=== PATIENT | female | born 1955 | race Two or more races ===

== ENCOUNTER 2019-09-07 16:05 | Inpatient (IN) | payer MEDICAID ==
[~2019-09-07] VITALS: Ht 144.8 cm; Wt 76.2 kg
[~2019-09-07 16:05] MED LIST: GLIM2TAB30 PO; METFORMIN PO; Nifedipine PO; OMEP20CA14 PO; TRAM50TA94 PO
[2019-09-07 20:26] LABS: CHLORIDE 107 mEq/L (98-107)
[2019-09-07 20:32] LABS: BASOPHILS % 0.3 % (0.0-2.0); EOSINOPHILS % 0.6 % (0.0-5.0); LYMPHOCYTES % 17.3 % (20.0-50.0); MEAN CORPUSCULAR VOLUME 92.6 fL (81.0-99.0); MEAN PLATELET VOLUME 9.2 fl (7.4-10.4); MONOCYTES % 6.4 % (2.0-8.0); NEUTROPHILS % 75.4 % (40.0-76.0); PLATELET 237 x1000/uL (130-400); RED BLOOD CELL COUNT 1.97 mill/uL (4.2-5.4); RED CELL DISTRIBUTION WIDTH 14.5 % (11.6-14.6)
[2019-09-07 20:35] LABS: HEMATOCRIT. 18.3 % (36.0-48.0); HEMOGLOBIN. 6.1 g/dL (12.0-16.0)
[2019-09-07 20:37] LABS: INR 0.9; PROTHROMBIN TIME 10.1 sec (9.6-11.0)
[2019-09-07] MEDS ORDERED: PANTOPRAZOLE SODIUM 40 MG/VIAL IV ONE (20:45)
[2019-09-07 21:08] LABS: TOTAL IRON BINDING CAPACITY 239 ug/dL (250-450)
[2019-09-07] MEDS ORDERED: ONDANSETRON HCL 4MG/2ML INJ IV PRN (23:30)
[2019-09-07] MEDS ORDERED: IPRATROPIUM/ALBUTEROL 0.5-3(2.5)MG/3ML NEB NEB PRN (23:30)
[2019-09-08] MEDS ORDERED: PANTOPRAZOLE 80 MG in SODIUM CHLORIDE 0.9% 100 ML IV SCH (01:00)
[2019-09-08] MEDS: PANTOPRAZOLE 80 MG in SODIUM CHLORIDE 0.9% 100 ML IV SCH ×2 (01:30→13:41)
[2019-09-08] MEDS: SODIUM CHLORIDE 0.9% 1,000 ML IV SCH ×2 (03:37→16:14)
[2019-09-08 04:43] LABS: CLARITY URINE TURBID (CLEAR); COLOR URINE ORANGE (YELLOW); KETONES URINE NEGATIVE (NEGATIVE); LEUKOCYTE ESTERASE URINE 2+ (NEGATIVE); NITRITE URINE POSITIVE (NEGATIVE); OCCULT BLOOD URINE 2+ (NEGATIVE); PH URINE 5.5 (4.5-8.0); PROTEIN URINE 2+ (NEGATIVE); SPECIFIC GRAVITY URINE 1.018 (1.005-1.030); UROBILINOGEN URINE 0.2 E.U./dL (0.2-1.0)
[2019-09-08 05:13] LABS: *AMPHETAMINES SCREEN URINE NEGATIVE (NEGATIVE); *BARBITURATES SCREEN URINE NEGATIVE (NEGATIVE); *BENZODIAZEPINES SCREEN URINE NEGATIVE (NEGATIVE); *COCAINE SCREEN URINE NEGATIVE (NEGATIVE)
[2019-09-08 05:14] LABS: CANNABINOID URINE SCREEN NEGATIVE (NEGATIVE); METHADONE URINE SCREEN NEGATIVE (NEGATIVE); OPIATES URINE SCREEN NEGATIVE (NEGATIVE); PHENCYCLIDINE URINE SCREEN NEGATIVE (NEGATIVE)
[2019-09-08 05:26] LABS: BASOPHILS % 0.7 % (0.0-2.0); EOSINOPHILS % 1.9 % (0.0-5.0); HEMOGLOBIN. 7.1 g/dL (12.0-16.0); LYMPHOCYTES % 21.5 % (20.0-50.0); MEAN CORPUSCULAR HEMOGLOBIN 31.2 pg (28.0-32.0); MEAN PLATELET VOLUME 8.8 fl (7.4-10.4); MONOCYTES % 7.5 % (2.0-8.0); NEUTROPHILS % 68.4 % (40.0-76.0); PLATELET 191 x1000/uL (130-400); RED BLOOD CELL COUNT 2.27 mill/uL (4.2-5.4); RED CELL DISTRIBUTION WIDTH 14.6 % (11.6-14.6)
[2019-09-08 05:34] LABS: HEMATOCRIT. 20.7 % (36.0-48.0)
[2019-09-08 05:48] LABS: CREATINE KINASE 33 IU/L (26-192)
[2019-09-08 05:49] LABS: CREATINE KINASE MB FRACTION < 1.0 ng/mL (0.5-3.6)
[2019-09-08] MEDS ORDERED: DEXTROSE 50% WATER 50ML SYRINGE IV PRN (06:15)
[2019-09-08] MEDS: INSULIN LISPRO (HIGH DOSE) 100 UNITS/ML SUBCUT SCH ×2 (06:20→15:11)
[2019-09-08] MEDS: BLOOD SUGAR DIAGNOSTIC STRIP TEST SCH ×2 (10:03→15:11)
[2019-09-08 13:01] LABS: AMYLASE 32 IU/L (25-115)
[2019-09-08 16:48] LABS: BASOPHILS % 0.6 % (0.0-2.0); EOSINOPHILS % 2.3 % (0.0-5.0); LYMPHOCYTES % 18.2 % (20.0-50.0); MEAN CORPUSCULAR HEMOGLOBIN 30.6 pg (28.0-32.0); MEAN PLATELET VOLUME 8.8 fl (7.4-10.4); MONOCYTES % 7.4 % (2.0-8.0); NEUTROPHILS % 71.5 % (40.0-76.0); PLATELET 189 x1000/uL (130-400); RED BLOOD CELL COUNT 2.16 mill/uL (4.2-5.4); RED CELL DISTRIBUTION WIDTH 15.2 % (11.6-14.6)
[2019-09-08 16:51] LABS: HEMATOCRIT. 19.9 % (36.0-48.0); HEMOGLOBIN. 6.6 g/dL (12.0-16.0)
[2019-09-08 17:02] LABS: CREATINE KINASE 36 IU/L (26-192); CREATINE KINASE MB FRACTION < 1.0 ng/mL (0.5-3.6)
[2019-09-08 20:39] LABS: BASOPHILS % 0.6 % (0.0-2.0); EOSINOPHILS % 2.5 % (0.0-5.0); HEMATOCRIT. 25.4 % (36.0-48.0); HEMOGLOBIN. 8.6 g/dL (12.0-16.0); LYMPHOCYTES % 19.3 % (20.0-50.0); MEAN CORPUSCULAR HEMOGLOBIN 30.3 pg (28.0-32.0); MEAN PLATELET VOLUME 8.8 fl (7.4-10.4); MONOCYTES % 6.6 % (2.0-8.0); PLATELET 197 x1000/uL (130-400); RED BLOOD CELL COUNT 2.85 mill/uL (4.2-5.4)
[2019-09-08] MEDS ORDERED: NIFEDIPINE XL 60MG TAB PO NR (20:45)
[2019-09-08 21:38] LABS: VITAMIN B12 SERUM 546 pg/mL (211-911)
[2019-09-08 22:00] VITALS: BP 149/77
[2019-09-08] MEDS: SUCRALFATE 1 G/10 ML UDC PO SCH (23:17)
[2019-09-09] VITALS (17 sets, daily range): BP systolic 88–139; BP diastolic 37–81
[2019-09-09 01:20] LABS: BASOPHILS % 0.6 % (0.0-2.0); EOSINOPHILS % 2.6 % (0.0-5.0); HEMATOCRIT. 22.3 % (36.0-48.0); HEMOGLOBIN. 7.7 g/dL (12.0-16.0); LYMPHOCYTES % 20.4 % (20.0-50.0); MEAN CORPUSCULAR HEMOGLOBIN 30.5 pg (28.0-32.0); MEAN CORPUSCULAR VOLUME 88.5 fL (81.0-99.0); MEAN PLATELET VOLUME 8.9 fl (7.4-10.4); NEUTROPHILS % 69.4 % (40.0-76.0); PLATELET 180 x1000/uL (130-400); RED BLOOD CELL COUNT 2.52 mill/uL (4.2-5.4); RED CELL DISTRIBUTION WIDTH 15.8 % (11.6-14.6)
[2019-09-09] MEDS: SODIUM CHLORIDE 0.9% 1,000 ML IV SCH ×2 (04:21→17:06)
[2019-09-09] MEDS: BLOOD SUGAR DIAGNOSTIC STRIP TEST SCH ×4 (08:08→20:56)
[2019-09-09] MEDS: SUCRALFATE 1 G/10 ML UDC PO SCH ×4 (09:03→20:47)
[2019-09-09] MEDS: MULTIVITAMINS,THER W-MINERALS TABLET PO SCH (09:03)
[2019-09-09] MEDS: METFORMIN HCL 500MG TABLET PO SCH ×2 (09:03→17:46)
[2019-09-09] MEDS: INSULIN LISPRO (HIGH DOSE) 100 UNITS/ML SUBCUT SCH ×4 (09:04→20:56)
[2019-09-09] MEDS: PANTOPRAZOLE SODIUM 40 MG/VIAL IV SCH ×2 (09:04→17:46)
[2019-09-09] MEDS: NIFEDIPINE XL 60MG TAB PO SCH (09:04)
[2019-09-09] MEDS: GLIMEPIRIDE 2MG TABLET PO SCH (09:04)
[2019-09-09] MEDS ORDERED: INFLUENZA VIRUS VACCINE(AFLURIA) 0.5ML SYR IM ONE (12:00)
[2019-09-09] MEDS ORDERED: PNEUMOCOCCAL 23-VAL P-SAC VAC 0.5 ML IM ONE (12:00)
[2019-09-09] MEDS ORDERED: IOHEXOL-300 100 ML BOTTLE ONE (21:09)
[2019-09-10] VITALS (12 sets, daily range): BP systolic 126–155; BP diastolic 59–85
[2019-09-10] MEDS: BLOOD SUGAR DIAGNOSTIC STRIP TEST SCH ×4 (07:27→21:00)
[2019-09-10] MEDS: SUCRALFATE 1 G/10 ML UDC PO SCH ×4 (07:30→22:18)
[2019-09-10] MEDS: INSULIN LISPRO (HIGH DOSE) 100 UNITS/ML SUBCUT SCH ×4 (08:00→21:00)
[2019-09-10] MEDS: METFORMIN HCL 500MG TABLET PO SCH ×2 (08:56→17:01)
[2019-09-10] MEDS: GLIMEPIRIDE 2MG TABLET PO SCH (08:56)
[2019-09-10] MEDS: PANTOPRAZOLE SODIUM 40 MG/VIAL IV SCH (08:56)
[2019-09-10] MEDS: NIFEDIPINE XL 60MG TAB PO SCH (08:56)
[2019-09-10] MEDS: MULTIVITAMINS,THER W-MINERALS TABLET PO SCH (09:00)
[2019-09-10] MEDS: SODIUM CHLORIDE 0.9% 1,000 ML IV SCH (11:34)
[2019-09-10] MEDS: CEFTRIAXONE 1 G PREMIX 50 ML IV SCH (15:28)
[2019-09-10 16:20] LABS: HEMATOCRIT 27.5 % (36.0-48.0); HEMOGLOBIN 9.4 g/dL (12.0-16.0); MEAN CORPUSCULAR HEMOGLOBIN 30.9 pg (28.0-32.0); MEAN CORPUSCULAR VOLUME 90.3 fL (81.0-99.0); PLATELET 183 x1000/uL (130-400); RED BLOOD CELL COUNT 3.05 mill/uL (4.2-5.4); RED CELL DISTRIBUTION WIDTH 16.4 % (11.6-14.6)
[2019-09-10 16:56] LABS: CHLORIDE 111 mEq/L (98-107)
[2019-09-11] VITALS (12 sets, daily range): BP systolic 113–150; BP diastolic 59–77
[2019-09-11] MEDS: SODIUM CHLORIDE 0.9% 1,000 ML IV SCH ×2 (05:24→19:06)
[2019-09-11 06:30] LABS: BASOPHILS % 0.8 % (0.0-2.0); EOSINOPHILS % 2.3 % (0.0-5.0); HEMATOCRIT. 28.6 % (36.0-48.0); HEMOGLOBIN. 9.7 g/dL (12.0-16.0); LYMPHOCYTES % 21.2 % (20.0-50.0); MEAN CORPUSCULAR HEMOGLOBIN 30.8 pg (28.0-32.0); MEAN CORPUSCULAR VOLUME 90.7 fL (81.0-99.0); MEAN PLATELET VOLUME 8.6 fl (7.4-10.4); MONOCYTES % 9.2 % (2.0-8.0); NEUTROPHILS % 66.5 % (40.0-76.0); PLATELET 198 x1000/uL (130-400); RED BLOOD CELL COUNT 3.15 mill/uL (4.2-5.4); RED CELL DISTRIBUTION WIDTH 16.6 % (11.6-14.6)
[2019-09-11 06:48] LABS: CHLORIDE 112 mEq/L (98-107)
[2019-09-11] MEDS: BLOOD SUGAR DIAGNOSTIC STRIP TEST SCH ×4 (07:59→21:48)
[2019-09-11] MEDS: INSULIN LISPRO (HIGH DOSE) 100 UNITS/ML SUBCUT SCH ×4 (08:00→21:00)
[2019-09-11] MEDS: PANTOPRAZOLE SODIUM 40 MG/VIAL IV SCH ×2 (08:37→17:54)
[2019-09-11] MEDS: SUCRALFATE 1 G/10 ML UDC PO SCH ×4 (08:37→21:48)
[2019-09-11] MEDS: METFORMIN HCL 500MG TABLET PO SCH ×2 (08:40→17:54)
[2019-09-11] MEDS: MULTIVITAMINS,THER W-MINERALS TABLET PO SCH (08:42)
[2019-09-11] MEDS: NIFEDIPINE XL 60MG TAB PO SCH (08:42)
[2019-09-11] MEDS: GLIMEPIRIDE 2MG TABLET PO SCH (08:43)
[2019-09-11 10:25] LABS: CLARITY URINE CLOUDY (CLEAR); COLOR URINE YELLOW (YELLOW); KETONES URINE NEGATIVE (NEGATIVE); LEUKOCYTE ESTERASE URINE NEGATIVE (NEGATIVE); NITRITE URINE NEGATIVE (NEGATIVE); OCCULT BLOOD URINE 3+ (NEGATIVE); PROTEIN URINE 3+ (NEGATIVE); SPECIFIC GRAVITY URINE 1.012 (1.005-1.030); UROBILINOGEN URINE 0.2 E.U./dL (0.2-1.0)
[2019-09-11] MEDS: CEFTRIAXONE 1 G PREMIX 50 ML IV SCH (13:31)
[2019-09-11] MEDS ORDERED: METOCLOPRAMIDE HCL 10MG/2ML VIAL IV NR (13:41)
[2019-09-11] MEDS ORDERED: BACTERIOSTATIC SODIUM CHLORIDE 0.9% 30ML VIAL IJ ONE (14:07)
[2019-09-11] MEDS ORDERED: MIDAZOLAM HCL 5 MG/5 ML VIAL ONE (14:57)
[2019-09-11] MEDS ORDERED: FENTANYL CITRATE/PF 50MCG/ML 2ML VIAL ONE (14:57)
[2019-09-11] MEDS ORDERED: MIDAZOLAM HCL 5 MG/5 ML VIAL IV PRN (15:27)
[2019-09-11] MEDS ORDERED: FENTANYL CITRATE/PF 50MCG/ML 2ML VIAL IV PRN (15:28)
[2019-09-12] VITALS (9 sets, daily range): BP systolic 126–152; BP diastolic 63–83
[2019-09-12] MEDS: PANTOPRAZOLE SODIUM 40 MG/VIAL IV SCH ×2 (05:31→16:49)
[2019-09-12 07:19] LABS: BASOPHILS % 0.6 % (0.0-2.0); EOSINOPHILS % 2.7 % (0.0-5.0); HEMATOCRIT. 29.8 % (36.0-48.0); HEMOGLOBIN. 9.9 g/dL (12.0-16.0); LYMPHOCYTES % 13.4 % (20.0-50.0); MEAN CORPUSCULAR HEMOGLOBIN 30.3 pg (28.0-32.0); MEAN CORPUSCULAR VOLUME 91.1 fL (81.0-99.0); MEAN PLATELET VOLUME 8.9 fl (7.4-10.4); MONOCYTES % 8.3 % (2.0-8.0); PLATELET 223 x1000/uL (130-400); RED BLOOD CELL COUNT 3.27 mill/uL (4.2-5.4); RED CELL DISTRIBUTION WIDTH 17.2 % (11.6-14.6)
[2019-09-12] MEDS: BLOOD SUGAR DIAGNOSTIC STRIP TEST SCH ×3 (07:58→16:51)
[2019-09-12] MEDS: INSULIN LISPRO (HIGH DOSE) 100 UNITS/ML SUBCUT SCH ×3 (08:00→16:59)
[2019-09-12] MEDS: METFORMIN HCL 500MG TABLET PO SCH ×2 (08:00→16:51)
[2019-09-12 08:18] LABS: CHLORIDE 110 mEq/L (98-107)
[2019-09-12] MEDS: SUCRALFATE 1 G/10 ML UDC PO SCH ×3 (08:18→16:49)
[2019-09-12] MEDS: MULTIVITAMINS,THER W-MINERALS TABLET PO SCH (08:19)
[2019-09-12] MEDS: NIFEDIPINE XL 60MG TAB PO SCH (08:19)
[2019-09-12] MEDS: GLIMEPIRIDE 2MG TABLET PO SCH (08:20)
[2019-09-12] MEDS: CEFTRIAXONE 1 G PREMIX 50 ML IV SCH (12:14)
[2019-09-13] MEDS ORDERED: CEFTRIAXONE 1,000 MG in DEXTROSE 5% WATER 50 ML IV SCH (14:00)
== END 2019-09-12 17:10 | disposition home or self-care (01) | DRG 241 ==
LOC: ER 16:05 → EDBEDREQTM 21:35 → EDBEDREQ 21:35 → CANRESERV 23:18 → ENRESERV 23:18 → EDBEDREQSVC 23:49 → ENRESERV 09-08 20:19 → 5EST 09-08 21:31
PROVIDERS: ADMIT Internal Medicine; ATTEND Internal Medicine
PROC: 30233N1 Transfusion of Nonautologous Red Blood Cells into Peripheral Vein, Percutaneous Approach (ICD-10-PCS; 2019-09-08)
PROC: 0DB98ZX Excision of Duodenum, Via Natural or Artificial Opening Endoscopic, Diagnostic (ICD-10-PCS; principal; 2019-09-11)
PROC: 0DB78ZX Excision of Stomach, Pylorus, Via Natural or Artificial Opening Endoscopic, Diagnostic (ICD-10-PCS; 2019-09-11)
DX: K25.4 Chronic or unspecified gastric ulcer with hemorrhage (principal); E46 Unspecified protein-calorie malnutrition; E11.65 Type 2 diabetes mellitus with hyperglycemia; D63.8 Anemia in other chronic diseases classified elsewhere; D49.0 Neoplasm of unspecified behavior of digestive system; E16.4 Increased secretion of gastrin; D50.9 Iron deficiency anemia, unspecified; E78.1 Pure hyperglyceridemia; K26.0 Acute duodenal ulcer with hemorrhage; I10 Essential (primary) hypertension; N39.0 Urinary tract infection, site not specified; Z87.11 Personal history of peptic ulcer disease; Z68.36 Body mass index [BMI] 36.0-36.9, adult; Z79.899 Other long term (current) drug therapy
CPT/HCPCS: 36415; 74177; 80048; 80053; 80061; 80305; 81003; 82150; 82378; 82550; 82553; 82607; 82941; 82962; 83036; 83540; 83550; 84443; 84484; 85025; 85027; 85044; 86300; 86301; 86850; 86870; 86900; 86920; 88305; 88312; 88313; 90686; 90732; 93005; 93970; 96361; 96365; 96366; 96372; 99291; C9113; J0696; J1815; J2250; J2765; J3010; J3490; J7050; J7060; P9016; P9021; Q9967

== ENCOUNTER 2020-07-11 17:33 | Inpatient (IN) | payer MEDICAID ==
[~2020-07-11] VITALS: Ht 152.4 cm; Wt 88.9 kg
[~2020-07-11 17:33] MED LIST changes: +FERR325T23 PO; +SITA25TA3 PO; +SUCR1TAB30 MT
[2020-07-11 20:05] LABS: PARTIAL THROMBOPLASTIN TIME 27.1 sec (23.4-31.0); PROTHROMBIN TIME 10.2 sec (9.6-11.0)
[2020-07-11 20:37] LABS: BASOPHILS % 0.6 % (0.0-2.0); EOSINOPHILS % 0.1 % (0.0-5.0); LYMPHOCYTES % 20.1 % (20.0-50.0); MEAN CORPUSCULAR HEMOGLOBIN 28.8 pg (28.0-32.0); MEAN PLATELET VOLUME 9.5 fl (7.4-10.4); MONOCYTES % 6.1 % (2.0-8.0); NEUTROPHILS % 73.1 % (40.0-76.0); PLATELET 202 x1000/uL (130-400); RED BLOOD CELL COUNT 2.05 mill/uL (4.2-5.4); RED CELL DISTRIBUTION WIDTH 18.6 % (11.6-14.6)
[2020-07-11 20:40] LABS: HEMATOCRIT. 18.4 % (36.0-48.0); HEMOGLOBIN. 5.9 g/dL (12.0-16.0)
[2020-07-12] MEDS ORDERED: CEFTRIAXONE 1 G PREMIX 50 ML IV ONE (00:30)
[2020-07-12] MEDS ORDERED: PANTOPRAZOLE SODIUM 40 MG/VIAL IV ONE (00:30)
[2020-07-12] MEDS ORDERED: CEFTRIAXONE 1 G PREMIX 50 ML IV SCH ×2 (01:30→10:30)
[2020-07-12 01:48] LABS: CHLORIDE 109 mEq/L (98-107)
[2020-07-12 01:54] LABS: D-DIMER 0.81 mg/L FEU (<0.50)
[2020-07-12] MEDS ORDERED: ONDANSETRON HCL 4MG/2ML INJ IV PRN (10:30)
[2020-07-12] MEDS ORDERED: DIPHENHYDRAMINE 50MG/ML VIAL IV PRN (10:30)
[2020-07-12 13:13] LABS: C REACTIVE PROTEIN CARDIAC 6.5 mg/L (0.00-3.00)
[2020-07-12] MEDS: CLONIDINE 0.1MG TABLET PO PRN (15:00)
[2020-07-12] MEDS: SODIUM CHLORIDE 0.9% 1,000 ML IV SCH ×2 (15:08→23:45)
[2020-07-12 17:20] LABS: TOTAL IRON BINDING CAPACITY 212 ug/dL (250-450)
[2020-07-12] MEDS: FERROUS SULFATE 325MG TABLET PO SCH (18:36)
[2020-07-12] MEDS: PANTOPRAZOLE SODIUM 40 MG/VIAL IV SCH ×2 (18:36→23:09)
[2020-07-12 21:28] VITALS: BP 179/72
[2020-07-12 21:51] VITALS: BP 177/65
[2020-07-12] MEDS ORDERED: DEXTROSE 50% WATER 50ML SYRINGE IV PRN (23:00)
[2020-07-12] MEDS: INSULIN GLARGINE UD 100 UNITS/ML SYR SUBCUT SCH (23:39)
[2020-07-13] MEDS: CLONIDINE 0.1MG TABLET PO PRN ×2 (00:26→06:37)
[2020-07-13 00:28] LABS: HEMATOCRIT 25.8 % (36.0-48.0); HEMOGLOBIN 8.6 g/dL (12.0-16.0)
[2020-07-13] MEDS: CEFTRIAXONE 1,000 MG in DEXTROSE 5% WATER 50 ML IV SCH (03:00)
[2020-07-13 04:49] LABS: BASOPHILS % 0.3 % (0.0-2.0); EOSINOPHILS % 0.1 % (0.0-5.0); HEMATOCRIT. 26.4 % (36.0-48.0); HEMOGLOBIN. 8.6 g/dL (12.0-16.0); LYMPHOCYTES % 12.6 % (20.0-50.0); MEAN CORPUSCULAR HEMOGLOBIN 29.8 pg (28.0-32.0); MEAN CORPUSCULAR VOLUME 91.8 fL (81.0-99.0); MEAN PLATELET VOLUME 9.8 fl (7.4-10.4); MONOCYTES % 5.2 % (2.0-8.0); NEUTROPHILS % 81.8 % (40.0-76.0); PLATELET 168 x1000/uL (130-400); RED BLOOD CELL COUNT 2.88 mill/uL (4.2-5.4); RED CELL DISTRIBUTION WIDTH 16.9 % (11.6-14.6)
[2020-07-13 04:52] LABS: CHLORIDE 113 mEq/L (98-107)
[2020-07-13 04:58] LABS: INR 0.9; LDL CHOLESTEROL 56 mg/dL (5-100); PARTIAL THROMBOPLASTIN TIME 26.5 sec (23.4-31.0); PROTHROMBIN TIME 9.9 sec (9.6-11.0)
[2020-07-13 05:00] LABS: HDL CHOLESTEROL 30 mg/dL (40-59)
[2020-07-13] MEDS: BLOOD SUGAR DIAGNOSTIC STRIP TEST SCH ×4 (05:44→22:40)
[2020-07-13] MEDS: INSULIN LISPRO 100 UNITS/ML SUBCUT SCH ×3 (06:23→16:55)
[2020-07-13] MEDS: FERROUS SULFATE 325MG TABLET PO SCH (06:37)
[2020-07-13] MEDS: INSULIN GLARGINE UD 100 UNITS/ML SYR SUBCUT SCH (10:17)
[2020-07-13] MEDS: SODIUM CHLORIDE 0.9% 1,000 ML IV SCH (11:34)
[2020-07-13] MEDS: PANTOPRAZOLE SODIUM 40 MG/VIAL IV SCH (17:12)
[2020-07-14] MEDS: SODIUM CHLORIDE 0.9% 1,000 ML IV SCH (00:04)
[2020-07-14] MEDS: INSULIN GLARGINE UD 100 UNITS/ML SYR SUBCUT SCH ×3 (00:04→22:52)
[2020-07-14] MEDS: INSULIN LISPRO 100 UNITS/ML SUBCUT SCH ×6 (00:04→22:08)
[2020-07-14] MEDS: CLONIDINE 0.1MG TABLET PO PRN ×2 (00:11→08:31)
[2020-07-14 04:43] LABS: BASOPHILS % 0.3 % (0.0-2.0); EOSINOPHILS % 0.1 % (0.0-5.0); HEMATOCRIT. 26.3 % (36.0-48.0); HEMOGLOBIN. 8.5 g/dL (12.0-16.0); LYMPHOCYTES % 19.6 % (20.0-50.0); MEAN CORPUSCULAR HEMOGLOBIN 29.4 pg (28.0-32.0); MEAN CORPUSCULAR VOLUME 91.1 fL (81.0-99.0); MONOCYTES % 7.1 % (2.0-8.0); NEUTROPHILS % 72.9 % (40.0-76.0); PLATELET 163 x1000/uL (130-400); RED BLOOD CELL COUNT 2.89 mill/uL (4.2-5.4)
[2020-07-14 04:51] LABS: CHLORIDE 113 mEq/L (98-107)
[2020-07-14] MEDS: CEFTRIAXONE 1,000 MG in DEXTROSE 5% WATER 50 ML IV SCH (04:59)
[2020-07-14] MEDS: BLOOD SUGAR DIAGNOSTIC STRIP TEST SCH ×4 (07:40→21:00)
[2020-07-14] MEDS: PANTOPRAZOLE SODIUM 40 MG/VIAL IV SCH ×2 (09:00→16:59)
[2020-07-14] MEDS ORDERED: HYDRALAZINE 20MG/ML VIAL IV PRN (09:30)
[2020-07-14 15:40] VITALS: BP 86/75
[2020-07-14] MEDS: NIFEDIPINE XL 60MG TAB PO SCH (16:59)
[2020-07-14 20:00] VITALS: BP 113/93
[2020-07-14] MEDS: DOCUSATE SODIUM 250MG CAPSULE PO SCH (22:08)
[2020-07-15] VITALS: BP 133/44
[2020-07-15] MEDS: SODIUM CHLORIDE 0.9% 1,000 ML IV SCH (00:54)
[2020-07-15] MEDS: CEFTRIAXONE 1,000 MG in DEXTROSE 5% WATER 50 ML IV SCH (03:05)
[2020-07-15 04:00] VITALS: BP 126/60
[2020-07-15] MEDS: ACETAMINOPHEN 325MG TABLET PO PRN (05:27)
[2020-07-15] MEDS: BLOOD SUGAR DIAGNOSTIC STRIP TEST SCH ×4 (06:15→21:00)
[2020-07-15] MEDS: INSULIN LISPRO 100 UNITS/ML SUBCUT SCH ×4 (06:16→21:56)
[2020-07-15 07:23] LABS: BASOPHILS % 0.3 % (0.0-2.0); HEMOGLOBIN. 8.7 g/dL (12.0-16.0); LYMPHOCYTES % 14.4 % (20.0-50.0); MEAN CORPUSCULAR HEMOGLOBIN 29.3 pg (28.0-32.0); MEAN CORPUSCULAR VOLUME 91.2 fL (81.0-99.0); MEAN PLATELET VOLUME 9.9 fl (7.4-10.4); MONOCYTES % 4.7 % (2.0-8.0); NEUTROPHILS % 80.6 % (40.0-76.0); PLATELET 180 x1000/uL (130-400); RED BLOOD CELL COUNT 2.96 mill/uL (4.2-5.4); RED CELL DISTRIBUTION WIDTH 17.2 % (11.6-14.6)
[2020-07-15 08:00] VITALS: BP 169/110
[2020-07-15] MEDS: PANTOPRAZOLE SODIUM 40 MG/VIAL IV SCH ×2 (09:50→17:00)
[2020-07-15] MEDS: DOCUSATE SODIUM 250MG CAPSULE PO SCH ×2 (09:50→17:00)
[2020-07-15] MEDS: NIFEDIPINE XL 60MG TAB PO SCH (09:50)
[2020-07-15] MEDS: INSULIN GLARGINE UD 100 UNITS/ML SYR SUBCUT SCH (11:03)
[2020-07-15 12:00] VITALS: BP 115/45
[2020-07-15 16:00] VITALS: BP 102/40
[2020-07-15] MEDS: SUCRALFATE 1G TABLET PO SCH ×2 (17:10→21:56)
[2020-07-15 20:00] VITALS: BP 123/55
[2020-07-16] VITALS: BP 118/77
[2020-07-16] MEDS: INSULIN GLARGINE UD 100 UNITS/ML SYR SUBCUT SCH ×3 (00:02→23:50)
[2020-07-16] MEDS: CEFTRIAXONE 1,000 MG in DEXTROSE 5% WATER 50 ML IV SCH (02:54)
[2020-07-16] MEDS: SODIUM CHLORIDE 0.9% 1,000 ML IV SCH ×4 (02:55→22:38)
[2020-07-16 04:00] VITALS: BP 129/80
[2020-07-16] MEDS: SUCRALFATE 1G TABLET PO SCH ×4 (06:06→22:32)
[2020-07-16] MEDS: INSULIN LISPRO 100 UNITS/ML SUBCUT SCH ×4 (06:06→22:35)
[2020-07-16] MEDS: BLOOD SUGAR DIAGNOSTIC STRIP TEST SCH ×4 (06:06→21:00)
[2020-07-16 08:00] VITALS: BP 133/63
[2020-07-16 08:48] LABS: BASOPHILS % 0.2 % (0.0-2.0); EOSINOPHILS % 0.1 % (0.0-5.0); HEMATOCRIT. 24.7 % (36.0-48.0); HEMOGLOBIN. 8.1 g/dL (12.0-16.0); LYMPHOCYTES % 13.2 % (20.0-50.0); MEAN CORPUSCULAR HEMOGLOBIN 29.9 pg (28.0-32.0); MEAN CORPUSCULAR VOLUME 90.9 fL (81.0-99.0); MEAN PLATELET VOLUME 9.5 fl (7.4-10.4); MONOCYTES % 5.8 % (2.0-8.0); NEUTROPHILS % 80.7 % (40.0-76.0); PLATELET 192 x1000/uL (130-400); RED BLOOD CELL COUNT 2.72 mill/uL (4.2-5.4); RED CELL DISTRIBUTION WIDTH 17.2 % (11.6-14.6)
[2020-07-16] MEDS: DOCUSATE SODIUM 250MG CAPSULE PO SCH ×2 (09:41→17:00)
[2020-07-16] MEDS: PANTOPRAZOLE SODIUM 40 MG/VIAL IV SCH ×2 (09:41→17:00)
[2020-07-16] MEDS: NIFEDIPINE XL 60MG TAB PO SCH (09:41)
[2020-07-16] MEDS: ACETAMINOPHEN 325MG TABLET PO PRN (11:30)
[2020-07-16 12:00] VITALS: BP 143/65
[2020-07-16 16:00] VITALS: BP 105/72
[2020-07-16 20:00] VITALS: BP 121/61
[2020-07-17] VITALS: BP 118/80
[2020-07-17 04:00] VITALS: BP 100/80
[2020-07-17] MEDS: SUCRALFATE 1G TABLET PO SCH ×4 (06:18→21:22)
[2020-07-17] MEDS: BLOOD SUGAR DIAGNOSTIC STRIP TEST SCH ×4 (06:24→21:01)
[2020-07-17] MEDS: INSULIN LISPRO 100 UNITS/ML SUBCUT SCH ×4 (07:40→21:00)
[2020-07-17 07:43] LABS: BASOPHILS % 0.6 % (0.0-2.0); EOSINOPHILS % 0.1 % (0.0-5.0); HEMOGLOBIN. 8.5 g/dL (12.0-16.0); LYMPHOCYTES % 12.3 % (20.0-50.0); MEAN CORPUSCULAR HEMOGLOBIN 29.6 pg (28.0-32.0); MEAN CORPUSCULAR VOLUME 90.5 fL (81.0-99.0); MEAN PLATELET VOLUME 9.4 fl (7.4-10.4); PLATELET 206 x1000/uL (130-400); RED BLOOD CELL COUNT 2.87 mill/uL (4.2-5.4); RED CELL DISTRIBUTION WIDTH 16.8 % (11.6-14.6)
[2020-07-17 08:00] VITALS: BP 163/57
[2020-07-17] MEDS: PANTOPRAZOLE SODIUM 40 MG/VIAL IV SCH ×2 (09:48→19:51)
[2020-07-17] MEDS: NIFEDIPINE XL 60MG TAB PO SCH (09:48)
[2020-07-17] MEDS: DOCUSATE SODIUM 250MG CAPSULE PO SCH ×2 (09:48→19:51)
[2020-07-17] MEDS: INSULIN GLARGINE UD 100 UNITS/ML SYR SUBCUT SCH ×2 (10:44→21:17)
[2020-07-17 12:00] VITALS: BP 149/61
[2020-07-17] MEDS: ACETAMINOPHEN 325MG TABLET PO PRN (13:53)
[2020-07-17 16:00] VITALS: BP 140/75
[2020-07-17] MEDS: DEXAMETHASONE 10 MG/ML VIAL IV SCH (19:51)
[2020-07-17] MEDS: SODIUM CHLORIDE 0.9% 1,000 ML IV SCH (19:52)
[2020-07-17 20:00] VITALS: BP 102/49
[2020-07-18] VITALS: BP 104/50
[2020-07-18] MEDS: SODIUM CHLORIDE 0.9% 1,000 ML IV SCH ×2 (03:53→18:47)
[2020-07-18 04:00] VITALS: BP 113/51
[2020-07-18] MEDS: BLOOD SUGAR DIAGNOSTIC STRIP TEST SCH ×4 (06:27→21:00)
[2020-07-18] MEDS: SUCRALFATE 1G TABLET PO SCH ×4 (06:47→22:05)
[2020-07-18] MEDS: INSULIN LISPRO 100 UNITS/ML SUBCUT SCH ×4 (07:48→22:05)
[2020-07-18 07:53] LABS: BASOPHILS % 0.1 % (0.0-2.0); HEMATOCRIT. 25.8 % (36.0-48.0); HEMOGLOBIN. 8.4 g/dL (12.0-16.0); LYMPHOCYTES % 10.8 % (20.0-50.0); MEAN CORPUSCULAR HEMOGLOBIN 29.3 pg (28.0-32.0); MEAN CORPUSCULAR VOLUME 90.3 fL (81.0-99.0); MEAN PLATELET VOLUME 9.2 fl (7.4-10.4); MONOCYTES % 2.6 % (2.0-8.0); NEUTROPHILS % 86.5 % (40.0-76.0); PLATELET 217 x1000/uL (130-400); RED BLOOD CELL COUNT 2.85 mill/uL (4.2-5.4); RED CELL DISTRIBUTION WIDTH 16.9 % (11.6-14.6)
[2020-07-18] MEDS: DOCUSATE SODIUM 250MG CAPSULE PO SCH ×2 (09:01→18:47)
[2020-07-18] MEDS: PANTOPRAZOLE SODIUM 40 MG/VIAL IV SCH ×2 (09:01→18:48)
[2020-07-18] MEDS: DEXAMETHASONE 10 MG/ML VIAL IV SCH (09:02)
[2020-07-18 10:09] VITALS: BP 123/50
[2020-07-18] MEDS: INSULIN GLARGINE UD 100 UNITS/ML SYR SUBCUT SCH ×2 (10:55→22:05)
[2020-07-18] MEDS: NIFEDIPINE XL 60MG TAB PO SCH (10:56)
[2020-07-18] MEDS: CITRIC ACID/SODIUM CITRATE SOLN 15ML UDC PO SCH ×2 (13:15→18:47)
[2020-07-18 14:35] VITALS: BP 133/63
[2020-07-18 17:50] LABS: BG BASE EXCESS -8.5 mmol/L (-2.0-2.0); BG CARBOXYHEMOGLOBIN 0.2 % (0.5-1.5); BG DEOXYHEMOGLOBIN 19.5 % (0.0-5.0); BG FRACTION INSPIRED OXYGEN 21; BG METHEMOGLOBIN 0.3 % (0.0-1.5); BG OXYGEN SATURATION 80.4 % (92.0-98.5); BG PCO2 24.3 mmHg (35.0-45.0); BG PH 7.408 (7.350-7.450); BG PO2 45.7 mmHg (75.0-100.0); BG SAMPLE SITE RIGHT BRACHIAL; BG TOTAL HEMOGLOBIN 8.8 g/dL (12.0-18.0); BG VENT MODE ROOM AIR
[2020-07-18 18:34] VITALS: BP 132/49
[2020-07-18 20:00] VITALS: BP 137/64
[2020-07-19] VITALS: BP 148/67
[2020-07-19 04:00] VITALS: BP 137/78
[2020-07-19] MEDS: SUCRALFATE 1G TABLET PO SCH ×2 (06:36→13:52)
[2020-07-19] MEDS: INSULIN LISPRO 100 UNITS/ML SUBCUT SCH ×2 (06:40→12:40)
[2020-07-19] MEDS: BLOOD SUGAR DIAGNOSTIC STRIP TEST SCH ×2 (06:40→12:10)
[2020-07-19 09:17] VITALS: BP 121/76
[2020-07-19] MEDS: CITRIC ACID/SODIUM CITRATE SOLN 15ML UDC PO SCH ×2 (11:24→13:52)
[2020-07-19] MEDS: DEXAMETHASONE 10 MG/ML VIAL IV SCH (11:24)
[2020-07-19] MEDS: DOCUSATE SODIUM 250MG CAPSULE PO SCH (11:25)
[2020-07-19] MEDS: PANTOPRAZOLE SODIUM 40 MG/VIAL IV SCH (11:25)
[2020-07-19] MEDS: NIFEDIPINE XL 60MG TAB PO SCH (11:25)
[2020-07-19] MEDS: INSULIN GLARGINE UD 100 UNITS/ML SYR SUBCUT SCH (11:27)
[2020-07-19] MEDS ORDERED: METF-414 MT (11:59)
[2020-07-19] MEDS ORDERED: INSU100I28 SQ (11:59)
[2020-07-19] MEDS ORDERED: DEXA6TAB MT (11:59)
[2020-07-19] MEDS ORDERED: PANT40TA51 MT (11:59)
[2020-07-19] MEDS ORDERED: SUCR1TAB30 MT (11:59)
[2020-07-19 12:46] VITALS: BP 176/66
[2020-07-19] MEDS: CLONIDINE 0.1MG TABLET PO PRN (13:52)
[2020-07-19 16:06] VITALS: BP 121/76
== END 2020-07-19 17:30 | disposition home or self-care (01) | DRG 137 ==
LOC: ER 17:33 → MICUSO 07-12 04:37 → 8WST 07-14 07:22 → MICUSO 07-14 10:19 → 7EST 07-14 10:20 → 8WST 07-14 12:22
PROVIDERS: ADMIT Internal Medicine; ATTEND Internal Medicine
PROC: 30233N1 Transfusion of Nonautologous Red Blood Cells into Peripheral Vein, Percutaneous Approach (ICD-10-PCS; principal; 2020-07-12)
DX: U07.1 COVID-19 (principal); J12.89 Other viral pneumonia; D50.0 Iron deficiency anemia secondary to blood loss (chronic); E11.22 Type 2 diabetes mellitus with diabetic chronic kidney disease; E11.65 Type 2 diabetes mellitus with hyperglycemia; E43 Unspecified severe protein-calorie malnutrition; E78.1 Pure hyperglyceridemia; E87.2 Acidosis; I12.9 Hypertensive chronic kidney disease with stage 1 through stage 4 chronic kidney disease, or unspecified chronic kidney disease; J98.11 Atelectasis; N17.9 Acute kidney failure, unspecified; N18.9 Chronic kidney disease, unspecified; J96.01 Acute respiratory failure with hypoxia; Z79.84 Long term (current) use of oral hypoglycemic drugs; K92.2 Gastrointestinal hemorrhage, unspecified; D37.9 Neoplasm of uncertain behavior of digestive organ, unspecified; Z87.11 Personal history of peptic ulcer disease; Z87.898 Personal history of other specified conditions
CPT/HCPCS: 36415; 36600; 71045; 80048; 80053; 80061; 82270; 82375; 82728; 82805; 82962; 83036; 83540; 83550; 83615; 84443; 85014; 85018; 85025; 85379; 85384; 86140; 86141; 86850; 86900; 86920; 93005; 96361; 96374; 96375; 96376; 99285; C1893; C9113; J0360; J0696; J1100; J1815; J7060; P9016; U0003

== ENCOUNTER 2021-03-04 21:15 | Inpatient (IN) | payer MEDICAID ==
[~2021-03-04] VITALS: Ht 149.9 cm; Wt 71.2 kg
[~2021-03-04 21:15] MED LIST changes: +DEXA6TAB MT; -FERR325T23 PO; -GLIM2TAB30 PO; +INSU100I28 SQ; +METF-414 MT; -METFORMIN PO; -OMEP20CA14 PO; +PANT40TA51 MT; -SITA25TA3 PO
[2021-03-04] MEDS ORDERED: PANTOPRAZOLE SODIUM 40 MG/VIAL IV STA (21:37)
[2021-03-04] MEDS ORDERED: SODIUM CHLORIDE 0.9% 1,000 ML IV ONE (22:45)
[2021-03-04 22:49] LABS: CHLORIDE 104 mEq/L (98-107)
[2021-03-04 22:52] LABS: BASOPHILS % 0.3 % (0.0-2.0); EOSINOPHILS % 0.5 % (0.0-5.0); LYMPHOCYTES % 10.1 % (20.0-50.0); MEAN CORPUSCULAR HEMOGLOBIN 19.8 pg (28.0-32.0); MEAN CORPUSCULAR VOLUME 69.4 fL (81.0-99.0); MEAN PLATELET VOLUME 8.2 fl (7.4-10.4); MONOCYTES % 5.8 % (2.0-8.0); NEUTROPHILS % 83.3 % (40.0-76.0); PLATELET 531 x1000/uL (130-400); RED BLOOD CELL COUNT 2.83 mill/uL (4.2-5.4); RED CELL DISTRIBUTION WIDTH 19.1 % (11.6-14.6)
[2021-03-04 22:53] LABS: ETHANOL BLOOD < 10 mg/dL; INR 1.1; PROTHROMBIN TIME 11.3 sec (9.6-11.0)
[2021-03-04 22:54] LABS: HEMATOCRIT. 19.6 % (36.0-48.0); HEMOGLOBIN. 5.6 g/dL (12.0-16.0)
[2021-03-04 23:15] LABS: PLATELET ESTIMATE INCREASED
[2021-03-05] VITALS (15 sets, daily range): BP systolic 127–200; BP diastolic 66–97
[2021-03-05] MEDS: HYDRALAZINE 20MG/ML VIAL IV PRN ×2 (06:12→09:32)
[2021-03-05] MEDS ORDERED: DEXT 5%/0.45% NACL KCL 20MEQ/L 1,000 ML IV SCH (06:30)
[2021-03-05] MEDS ORDERED: OCTREOTIDE 1,000 MCG in SODIUM CHLORIDE 0.9% 98 ML IV SCH (07:30)
[2021-03-05] MEDS ORDERED: PANTOPRAZOLE 80 MG in SODIUM CHLORIDE 0.9% 100 ML IV SCH (07:30)
[2021-03-05 10:31] LABS: HEMATOCRIT. 23.9 % (36.0-48.0); HEMOGLOBIN. 7.4 g/dL (12.0-16.0); MEAN CORPUSCULAR HEMOGLOBIN 23.6 pg (28.0-32.0); MEAN CORPUSCULAR VOLUME 75.8 fL (81.0-99.0); MEAN PLATELET VOLUME 8.3 fl (7.4-10.4); PLATELET 440 x1000/uL (130-400); RED BLOOD CELL COUNT 3.16 mill/uL (4.2-5.4); RED CELL DISTRIBUTION WIDTH 22.7 % (11.6-14.6)
[2021-03-05 10:47] LABS: CHLORIDE 109 mEq/L (98-107)
[2021-03-05] MEDS ORDERED: HYDRALAZINE HCL 100MG TABLET PO SCH (11:00)
[2021-03-05] MEDS ORDERED: ONDANSETRON HCL 4MG/2ML INJ IV PRN (11:00)
[2021-03-05] MEDS ORDERED: DEXTROSE 50% WATER 50ML SYRINGE IV PRN (11:00)
[2021-03-05] MEDS: SUCRALFATE 1 G/10 ML UDC PO SCH ×3 (12:37→21:42)
[2021-03-05] MEDS: PANTOPRAZOLE SODIUM 40 MG/VIAL IV SCH ×2 (12:37→21:42)
[2021-03-05] MEDS: AMLODIPINE 10MG TABLET PO SCH (12:38)
[2021-03-05] MEDS: PIPERACILLIN/TAZOBACTAM 3.375 G in DEXTROSE 5% WATER 50 ML IV SCH ×2 (12:39→18:05)
[2021-03-05] MEDS: SODIUM CHLORIDE 0.45% 1,000 ML IV SCH (12:40)
[2021-03-05] MEDS: BLOOD SUGAR DIAGNOSTIC STRIP TEST SCH ×3 (12:40→21:42)
[2021-03-05] MEDS: INSULIN LISPRO 100 UNITS/ML SUBCUT SCH ×3 (12:47→21:00)
[2021-03-05 14:46] LABS: PLATELET ESTIMATE INCREASED
[2021-03-05] MEDS: HYDRALAZINE HCL 100MG TABLET PO SCH (18:06)
[2021-03-05 19:08] LABS: CLARITY URINE CLEAR (CLEAR); COLOR URINE YELLOW (YELLOW); KETONES URINE NEGATIVE (NEGATIVE); LEUKOCYTE ESTERASE URINE NEGATIVE (NEGATIVE); NITRITE URINE NEGATIVE (NEGATIVE); OCCULT BLOOD URINE TRACE (NEGATIVE); PROTEIN URINE 3+ (NEGATIVE); SPECIFIC GRAVITY URINE 1.015 (1.005-1.030); UROBILINOGEN URINE 0.2 E.U./dL (0.2-1.0)
[2021-03-05 19:13] LABS: HEMATOCRIT 28.5 % (36.0-48.0); HEMOGLOBIN 8.9 g/dL (12.0-16.0)
[2021-03-05 19:50] LABS: *AMPHETAMINES SCREEN URINE NEGATIVE (NEGATIVE); *BARBITURATES SCREEN URINE NEGATIVE (NEGATIVE); *BENZODIAZEPINES SCREEN URINE NEGATIVE (NEGATIVE); *COCAINE SCREEN URINE NEGATIVE (NEGATIVE); METHADONE URINE SCREEN NEGATIVE (NEGATIVE); OPIATES URINE SCREEN NEGATIVE (NEGATIVE)
[2021-03-05 19:51] LABS: CANNABINOID URINE SCREEN NEGATIVE (NEGATIVE); PHENCYCLIDINE URINE SCREEN NEGATIVE (NEGATIVE)
[2021-03-06] VITALS (12 sets, daily range): BP systolic 120–181; BP diastolic 55–110
[2021-03-06] MEDS: PIPERACILLIN/TAZOBACTAM 3.375 G in DEXTROSE 5% WATER 50 ML IV SCH ×4 (00:24→17:53)
[2021-03-06] MEDS: HYDRALAZINE HCL 100MG TABLET PO SCH ×3 (00:37→17:55)
[2021-03-06] MEDS: SODIUM CHLORIDE 0.45% 1,000 ML IV SCH (06:00)
[2021-03-06 06:31] LABS: BASOPHILS % 0.3 % (0.0-2.0); EOSINOPHILS % 1.5 % (0.0-5.0); HEMATOCRIT. 29.5 % (36.0-48.0); HEMOGLOBIN. 9.2 g/dL (12.0-16.0); LYMPHOCYTES % 8.4 % (20.0-50.0); MEAN CORPUSCULAR HEMOGLOBIN 24.5 pg (28.0-32.0); MEAN CORPUSCULAR VOLUME 78.8 fL (81.0-99.0); MEAN PLATELET VOLUME 8.3 fl (7.4-10.4); MONOCYTES % 6.2 % (2.0-8.0); NEUTROPHILS % 83.6 % (40.0-76.0); PLATELET 429 x1000/uL (130-400); RED BLOOD CELL COUNT 3.74 mill/uL (4.2-5.4)
[2021-03-06 06:56] LABS: FOLIC ACID (FOLATE) SERUM 13.1 ng/mL (>5.38)
[2021-03-06] MEDS: BLOOD SUGAR DIAGNOSTIC STRIP TEST SCH ×3 (07:30→17:52)
[2021-03-06] MEDS: INSULIN LISPRO 100 UNITS/ML SUBCUT SCH ×3 (08:00→18:00)
[2021-03-06] MEDS: DOCUSATE SODIUM 100MG CAPSULE PO SCH ×2 (10:15→17:00)
[2021-03-06] MEDS: PANTOPRAZOLE SODIUM 40 MG/VIAL IV SCH (10:19)
[2021-03-06] MEDS: SUCRALFATE 1 G/10 ML UDC PO SCH ×3 (10:19→17:52)
[2021-03-06] MEDS: AMLODIPINE 10MG TABLET PO SCH (10:20)
[2021-03-06] MEDS: FERROUS SULFATE 300MG/5ML UDC PO SCH ×4 (12:28→17:56)
[2021-03-06] MEDS ORDERED: FENTANYL CITRATE/PF 50MCG/ML 2ML VIAL IV PRN (12:56)
[2021-03-06] MEDS ORDERED: MIDAZOLAM HCL 5 MG/5 ML VIAL IV PRN (12:57)
[2021-03-06] MEDS ORDERED: MIDAZOLAM HCL 5 MG/5 ML VIAL ONE (12:58)
[2021-03-06] MEDS ORDERED: FENTANYL CITRATE/PF 50MCG/ML 2ML VIAL ONE (12:59)
[2021-03-06] MEDS ORDERED: PANT40TA51 MT (17:26)
[2021-03-06] MEDS ORDERED: SUCR1TAB30 MT (17:26)
[2021-03-06] MEDS ORDERED: SUCRALFATE 1G TABLET PO SCH (17:30)
== END 2021-03-06 22:12 | disposition home or self-care (01) | DRG 241 ==
LOC: ER 21:17 → 5EST 23:13 → EDBEDREQ 23:18 → EDBEDREQTM 23:18 → EDBEDREQSVC 23:18 → ENRESERV 23:29
PROVIDERS: ADMIT Internal Medicine; ATTEND Internal Medicine
PROC: 30233N1 Transfusion of Nonautologous Red Blood Cells into Peripheral Vein, Percutaneous Approach (ICD-10-PCS; 2021-03-05)
PROC: 0DB98ZX Excision of Duodenum, Via Natural or Artificial Opening Endoscopic, Diagnostic (ICD-10-PCS; principal; 2021-03-06)
PROC: 0DB78ZX Excision of Stomach, Pylorus, Via Natural or Artificial Opening Endoscopic, Diagnostic (ICD-10-PCS; 2021-03-06)
DX: K29.71 Gastritis, unspecified, with bleeding (principal); E43 Unspecified severe protein-calorie malnutrition; K63.2 Fistula of intestine; E87.1 Hypo-osmolality and hyponatremia; E88.09 Other disorders of plasma-protein metabolism, not elsewhere classified; E11.65 Type 2 diabetes mellitus with hyperglycemia; D50.0 Iron deficiency anemia secondary to blood loss (chronic); D72.829 Elevated white blood cell count, unspecified; K26.4 Chronic or unspecified duodenal ulcer with hemorrhage; K52.9 Noninfective gastroenteritis and colitis, unspecified; I10 Essential (primary) hypertension; Z20.822 Contact with and (suspected) exposure to COVID-19; Z82.49 Family history of ischemic heart disease and other diseases of the circulatory system; Z68.31 Body mass index [BMI] 31.0-31.9, adult
CPT/HCPCS: 36415; 80048; 80053; 80305; 80320; 81003; 82607; 82728; 82746; 82962; 83540; 83550; 85014; 85018; 85025; 85044; 86850; 86870; 86900; 86920; 87426; 88304; 88305; 88312; 88313; 93005; 99291; C9113; J0360; J1815; J2250; J2354; J2543; J3010; J7030; J7050; J7060; P9016; G0480

== ENCOUNTER 2021-03-24 11:48 | Inpatient (IN) | payer MEDICAID ==
[~2021-03-24] VITALS: Ht 149.9 cm; Wt 65.8 kg
[~2021-03-24 11:48] MED LIST changes: -DEXA6TAB MT
[2021-03-24 12:44] LABS: BG BASE EXCESS -12.2 mmol/L (-2.0-2.0); BG CARBOXYHEMOGLOBIN 1.5 % (0.5-1.5); BG DEOXYHEMOGLOBIN 7.4 % (0.0-5.0); BG HCO3 ACT 12.8 mmol/L (22.0-26.0); BG METHEMOGLOBIN 0.2 % (0.0-1.5); BG OXYGEN SATURATION 92.5 % (92.0-98.5); BG OXYHEMOGLOBIN 90.9 % (94.0-97.0); BG PCO2 25.8 mmHg (35.0-45.0); BG PH 7.313 (7.350-7.450); BG PO2 73.6 mmHg (75.0-100.0); BG SAMPLE SITE RIGHT BRACHIAL; BG TOTAL HEMOGLOBIN 6.9 g/dL (12.0-18.0); BG VENT MODE ROOM AIR
[2021-03-24 13:15] LABS: BASOPHILS % 0.3 % (0.0-2.0); EOSINOPHILS % 0.6 % (0.0-5.0); HEMATOCRIT. 22.9 % (36.0-48.0); LYMPHOCYTES % 12.1 % (20.0-50.0); MEAN CORPUSCULAR HEMOGLOBIN 23.6 pg (28.0-32.0); MEAN CORPUSCULAR VOLUME 79.3 fL (81.0-99.0); MEAN PLATELET VOLUME 7.2 fl (7.4-10.4); MONOCYTES % 0.7 % (2.0-8.0); NEUTROPHILS % 86.3 % (40.0-76.0); PLATELET 391 x1000/uL (130-400); RED BLOOD CELL COUNT 2.89 mill/uL (4.2-5.4); RED CELL DISTRIBUTION WIDTH 23.5 % (11.6-14.6)
[2021-03-24 13:18] LABS: CHLORIDE 113 mEq/L (98-107); HEMOGLOBIN. 6.8 g/dL (12.0-16.0)
[2021-03-24 13:22] LABS: ETHANOL BLOOD < 10 mg/dL
[2021-03-24 13:52] LABS: PLATELET ESTIMATE NORMAL
[2021-03-24] MEDS ORDERED: VANCOMYCIN 1 G PREMIX 200 ML IV SCH (14:30)
[2021-03-24] MEDS ORDERED: PIPERACILLIN/TAZOBACTAM 3.375GM/50ML PREMIX IV ONE (14:30)
[2021-03-24] MEDS ORDERED: FUROSEMIDE 40MG/4ML VIAL IVP ONE (14:30)
[2021-03-24 15:33] LABS: TOTAL IRON BINDING CAPACITY 164 ug/dL (250-450)
[2021-03-24 23:43] VITALS: BP 119/70
[2021-03-25] VITALS (16 sets, daily range): BP systolic 95–119; BP diastolic 42–87
[2021-03-25] MEDS ORDERED: ONDANSETRON HCL 4MG/2ML INJ IV PRN (01:30)
[2021-03-25] MEDS ORDERED: BLOOD SUGAR DIAGNOSTIC STRIP TEST SCH (01:30)
[2021-03-25] MEDS ORDERED: DEXTROSE 50% WATER 50ML SYRINGE IV PRN (01:30)
[2021-03-25 02:32] LABS: HEMATOCRIT. 23.1 % (36.0-48.0); HEMOGLOBIN. 7.1 g/dL (12.0-16.0); MEAN CORPUSCULAR HEMOGLOBIN 24.7 pg (28.0-32.0); MEAN CORPUSCULAR VOLUME 80.7 fL (81.0-99.0); MEAN PLATELET VOLUME 8.1 fl (7.4-10.4); PLATELET 328 x1000/uL (130-400); RED BLOOD CELL COUNT 2.86 mill/uL (4.2-5.4); RED CELL DISTRIBUTION WIDTH 22.6 % (11.6-14.6)
[2021-03-25] MEDS: LACTATED RINGERS 1,000 ML IV SCH (02:36)
[2021-03-25] MEDS: PANTOPRAZOLE 80 MG in SODIUM CHLORIDE 0.9% 100 ML IV SCH ×2 (02:50→15:53)
[2021-03-25] MEDS ORDERED: PANTOPRAZOLE SODIUM 40 MG/VIAL IV ONE ×2 (02:54→12:57)
[2021-03-25 03:11] LABS: BG BASE EXCESS -10.7 mmol/L (-2.0-2.0); BG CARBOXYHEMOGLOBIN 1.3 % (0.5-1.5); BG DEOXYHEMOGLOBIN 5.4 % (0.0-5.0); BG FRACTION INSPIRED OXYGEN 21; BG HCO3 ACT 13.5 mmol/L (22.0-26.0); BG METHEMOGLOBIN 0.3 % (0.0-1.5); BG OXYGEN SATURATION 94.5 % (92.0-98.5); BG PCO2 24.4 mmHg (35.0-45.0); BG PH 7.362 (7.350-7.450); BG PO2 77.4 mmHg (75.0-100.0); BG SAMPLE SITE RIGHT BRACHIAL; BG TOTAL HEMOGLOBIN 7.4 g/dL (12.0-18.0); BG VENT MODE ROOM AIR
[2021-03-25] MEDS: ACETAMINOPHEN 120MG SUPP PR PRN ×2 (03:30→12:24)
[2021-03-25] MEDS: BLOOD SUGAR DIAGNOSTIC STRIP TEST SCH ×2 (06:35→12:49)
[2021-03-25] MEDS: INSULIN LISPRO 100 UNITS/ML SUBCUT SCH ×3 (06:54→18:58)
[2021-03-25] MEDS ORDERED: INSULIN LISPRO 100 UNITS/ML SUBCUT SCH (08:00)
[2021-03-25] MEDS ORDERED: FERROUS SULFATE 325MG TABLET PO SCH (10:00)
[2021-03-25 10:33] LABS: MEAN CORPUSCULAR HEMOGLOBIN 24.4 pg (28.0-32.0); MEAN CORPUSCULAR VOLUME 81.3 fL (81.0-99.0); MEAN PLATELET VOLUME 8.4 fl (7.4-10.4); PLATELET 296 x1000/uL (130-400); RED BLOOD CELL COUNT 2.74 mill/uL (4.2-5.4); RED CELL DISTRIBUTION WIDTH 22.8 % (11.6-14.6)
[2021-03-25 10:40] LABS: CHLORIDE 113 mEq/L (98-107)
[2021-03-25 10:45] LABS: HEMATOCRIT. 22.3 % (36.0-48.0); HEMOGLOBIN. 6.7 g/dL (12.0-16.0)
[2021-03-25 16:00] LABS: PLATELET ESTIMATE NORMAL
[2021-03-25 16:27] LABS: PLATELET ESTIMATE NORMAL
[2021-03-25 18:01] LABS: HEMATOCRIT. 26.9 % (36.0-48.0); HEMOGLOBIN. 8.3 g/dL (12.0-16.0); MEAN CORPUSCULAR HEMOGLOBIN 26.1 pg (28.0-32.0); MEAN CORPUSCULAR VOLUME 84.1 fL (81.0-99.0); MEAN PLATELET VOLUME 8.2 fl (7.4-10.4); PLATELET 264 x1000/uL (130-400); RED CELL DISTRIBUTION WIDTH 22.1 % (11.6-14.6)
[2021-03-25 20:32] LABS: PLATELET ESTIMATE NORMAL
[2021-03-26] VITALS (12 sets, daily range): BP systolic 104–188; BP diastolic 47–95
[2021-03-26 00:09] LABS: CLARITY URINE CLEAR (CLEAR); COLOR URINE YELLOW (YELLOW); KETONES URINE NEGATIVE (NEGATIVE); LEUKOCYTE ESTERASE URINE NEGATIVE (NEGATIVE); NITRITE URINE NEGATIVE (NEGATIVE); OCCULT BLOOD URINE NEGATIVE (NEGATIVE); PROTEIN URINE 3+ (NEGATIVE); SPECIFIC GRAVITY URINE 1.014 (1.005-1.030); UROBILINOGEN URINE 0.2 E.U./dL (0.2-1.0)
[2021-03-26] MEDS: LINEZOLID 600 MG PREMIX 300 ML IV SCH ×3 (01:15→23:10)
[2021-03-26] MEDS: PANTOPRAZOLE 80 MG in SODIUM CHLORIDE 0.9% 100 ML IV SCH ×2 (04:07→09:00)
[2021-03-26] MEDS: LACTATED RINGERS 1,000 ML IV SCH (04:08)
[2021-03-26] MEDS: INSULIN LISPRO 100 UNITS/ML SUBCUT SCH ×4 (06:15→18:30)
[2021-03-26] MEDS: BLOOD SUGAR DIAGNOSTIC STRIP TEST SCH ×4 (06:15→18:22)
[2021-03-26] MEDS: OMEPRAZOLE 20MG CAPSULE EXTENDED RELEASE PO SCH (07:59)
[2021-03-26 10:16] LABS: HEMATOCRIT. 27.5 % (36.0-48.0); HEMOGLOBIN. 8.3 g/dL (12.0-16.0); MEAN CORPUSCULAR HEMOGLOBIN 25.5 pg (28.0-32.0); MEAN CORPUSCULAR VOLUME 83.9 fL (81.0-99.0); MEAN PLATELET VOLUME 8.7 fl (7.4-10.4); PLATELET 259 x1000/uL (130-400); RED BLOOD CELL COUNT 3.28 mill/uL (4.2-5.4); RED CELL DISTRIBUTION WIDTH 22.3 % (11.6-14.6)
[2021-03-26 11:44] LABS: PLATELET ESTIMATE NORMAL
[2021-03-26] MEDS: SODIUM BICARBONATE 100 MEQ in DEXTROSE 5% WATER 1,000 ML IV SCH (14:19)
[2021-03-26 15:06] LABS: CREATINE KINASE 31 IU/L (26-192)
[2021-03-26] MEDS: CLONIDINE 0.1MG TABLET PO PRN (18:27)
[2021-03-27] VITALS (18 sets, daily range): BP systolic 122–192; BP diastolic 55–96
[2021-03-27] MEDS: SODIUM BICARBONATE 100 MEQ in DEXTROSE 5% WATER 1,000 ML IV SCH ×2 (04:40→19:20)
[2021-03-27] MEDS: CLONIDINE 0.1MG TABLET PO PRN ×2 (05:53→12:47)
[2021-03-27] MEDS: INSULIN LISPRO 100 UNITS/ML SUBCUT SCH ×4 (06:02→18:00)
[2021-03-27] MEDS: BLOOD SUGAR DIAGNOSTIC STRIP TEST SCH ×4 (06:20→18:00)
[2021-03-27 06:59] LABS: HEMATOCRIT. 25.6 % (36.0-48.0); HEMOGLOBIN. 8.2 g/dL (12.0-16.0); MEAN CORPUSCULAR HEMOGLOBIN 25.7 pg (28.0-32.0); MEAN CORPUSCULAR VOLUME 79.9 fL (81.0-99.0); MEAN PLATELET VOLUME 8.3 fl (7.4-10.4); PLATELET 209 x1000/uL (130-400); RED BLOOD CELL COUNT 3.21 mill/uL (4.2-5.4); RED CELL DISTRIBUTION WIDTH 22.6 % (11.6-14.6)
[2021-03-27 08:08] LABS: ANTI-NUCLEAR ANTIBODIES DIRECT Negative (Negative)
[2021-03-27] MEDS: OMEPRAZOLE 20MG CAPSULE EXTENDED RELEASE PO SCH (08:28)
[2021-03-27] MEDS ORDERED: NIFEDIPINE XL 60MG TAB PO SCH (10:30)
[2021-03-27] MEDS: SUCRALFATE 1G TABLET PO SCH ×4 (10:58→20:53)
[2021-03-27] MEDS: LINEZOLID 600 MG PREMIX 300 ML IV SCH (11:06)
[2021-03-27] MEDS ORDERED: HYDRALAZINE 20MG/ML VIAL IV NR (13:30)
[2021-03-27] MEDS ORDERED: HYDRALAZINE HCL 25MG TABLET PO SCH (14:00)
[2021-03-27] MEDS: MICAFUNGIN 150 MG in SODIUM CHLORIDE 0.9% 100 ML IV SCH (15:03)
[2021-03-27] MEDS: AMPICILLIN SOD/SULBACTAM NA 3 G in SODIUM CHLORIDE 0.9% 100 ML IV SCH (15:08)
[2021-03-27 16:29] LABS: PLATELET ESTIMATE NORMAL
[2021-03-27] MEDS: HYDRALAZINE 20MG/ML VIAL IV SCH (17:55)
[2021-03-27] MEDS: HYDRALAZINE HCL 50MG TABLET PO SCH (20:54)
[2021-03-28] VITALS (12 sets, daily range): BP systolic 100–142; BP diastolic 48–77
[2021-03-28] MEDS: INSULIN LISPRO 100 UNITS/ML SUBCUT SCH ×4 (00:21→17:22)
[2021-03-28] MEDS: BLOOD SUGAR DIAGNOSTIC STRIP TEST SCH ×4 (00:22→17:22)
[2021-03-28] MEDS: HYDRALAZINE 20MG/ML VIAL IV SCH ×4 (00:23→17:42)
[2021-03-28] MEDS: AMPICILLIN SOD/SULBACTAM NA 3 G in SODIUM CHLORIDE 0.9% 100 ML IV SCH ×2 (02:19→13:42)
[2021-03-28] MEDS: HYDRALAZINE HCL 50MG TABLET PO SCH ×3 (05:28→21:09)
[2021-03-28 06:21] LABS: BASOPHILS % 0.5 % (0.0-2.0); EOSINOPHILS % 1.6 % (0.0-5.0); HEMATOCRIT. 25.5 % (36.0-48.0); HEMOGLOBIN. 8.4 g/dL (12.0-16.0); LYMPHOCYTES % 9.3 % (20.0-50.0); MEAN CORPUSCULAR HEMOGLOBIN 26.2 pg (28.0-32.0); MEAN CORPUSCULAR VOLUME 79.7 fL (81.0-99.0); MEAN PLATELET VOLUME 8.5 fl (7.4-10.4); MONOCYTES % 5.2 % (2.0-8.0); NEUTROPHILS % 83.4 % (40.0-76.0); PLATELET 182 x1000/uL (130-400); RED CELL DISTRIBUTION WIDTH 23.2 % (11.6-14.6)
[2021-03-28] MEDS: OMEPRAZOLE 20MG CAPSULE EXTENDED RELEASE PO SCH (09:03)
[2021-03-28] MEDS: NIFEDIPINE XL 90MG TAB PO SCH (09:03)
[2021-03-28] MEDS: SUCRALFATE 1G TABLET PO SCH ×4 (09:03→21:09)
[2021-03-28 10:37] LABS: BG BASE EXCESS 0.6 mmol/L (-2.0-2.0); BG CARBOXYHEMOGLOBIN 0.4 % (0.5-1.5); BG DEOXYHEMOGLOBIN 4.9 % (0.0-5.0); BG FRACTION INSPIRED OXYGEN 21; BG HCO3 ACT 23.6 mmol/L (22.0-26.0); BG METHEMOGLOBIN 0.3 % (0.0-1.5); BG OXYGEN SATURATION 95.1 % (92.0-98.5); BG OXYHEMOGLOBIN 94.4 % (94.0-97.0); BG PCO2 31.8 mmHg (35.0-45.0); BG PH 7.488 (7.350-7.450); BG PO2 73.8 mmHg (75.0-100.0); BG SAMPLE SITE RIGHT RADIAL; BG TOTAL HEMOGLOBIN 9.8 g/dL (12.0-18.0); BG VENT MODE ROOM AIR
[2021-03-28] MEDS: SODIUM CHLORIDE 0.9% 1,000 ML IV SCH ×2 (12:09→23:20)
[2021-03-28] MEDS: MICAFUNGIN 150 MG in SODIUM CHLORIDE 0.9% 100 ML IV SCH (13:42)
[2021-03-29] VITALS (12 sets, daily range): BP systolic 101–138; BP diastolic 39–69
[2021-03-29] MEDS: BLOOD SUGAR DIAGNOSTIC STRIP TEST SCH ×5 (00:23→23:57)
[2021-03-29] MEDS: AMPICILLIN SOD/SULBACTAM NA 3 G in SODIUM CHLORIDE 0.9% 100 ML IV SCH ×2 (02:15→14:06)
[2021-03-29] MEDS: INSULIN LISPRO 100 UNITS/ML SUBCUT SCH ×5 (06:00→23:57)
[2021-03-29] MEDS: HYDRALAZINE HCL 50MG TABLET PO SCH ×3 (06:00→22:00)
[2021-03-29] MEDS: HYDRALAZINE 20MG/ML VIAL IV SCH ×4 (06:00→18:00)
[2021-03-29] MEDS: OMEPRAZOLE 20MG CAPSULE EXTENDED RELEASE PO SCH (08:06)
[2021-03-29 08:08] LABS: BASOPHILS % 0.6 % (0.0-2.0); EOSINOPHILS % 1.8 % (0.0-5.0); HEMOGLOBIN. 8.5 g/dL (12.0-16.0); MEAN CORPUSCULAR HEMOGLOBIN 25.9 pg (28.0-32.0); MEAN CORPUSCULAR VOLUME 79.6 fL (81.0-99.0); MEAN PLATELET VOLUME 8.4 fl (7.4-10.4); MONOCYTES % 7.6 % (2.0-8.0); PLATELET 189 x1000/uL (130-400); RED BLOOD CELL COUNT 3.27 mill/uL (4.2-5.4); RED CELL DISTRIBUTION WIDTH 23.2 % (11.6-14.6)
[2021-03-29 08:19] LABS: PHOSPHORUS 4.2 mg/dL (2.5-4.9)
[2021-03-29] MEDS: SUCRALFATE 1G TABLET PO SCH ×4 (08:39→21:00)
[2021-03-29] MEDS: NIFEDIPINE XL 90MG TAB PO SCH (10:08)
[2021-03-29] MEDS: SODIUM CHLORIDE 0.9% 1,000 ML IV SCH (12:40)
[2021-03-29] MEDS: MICAFUNGIN 150 MG in SODIUM CHLORIDE 0.9% 100 ML IV SCH (14:07)
[2021-03-29] MEDS ORDERED: MAGNESIUM 1 G PREMIX 100 ML IV NR (16:30)
[2021-03-30] VITALS (13 sets, daily range): BP systolic 107–156; BP diastolic 51–84
[2021-03-30] MEDS: HYDRALAZINE 20MG/ML VIAL IV SCH ×4 (00:15→18:00)
[2021-03-30] MEDS: AMPICILLIN SOD/SULBACTAM NA 3 G in SODIUM CHLORIDE 0.9% 100 ML IV SCH ×2 (02:17→13:17)
[2021-03-30] MEDS: SODIUM CHLORIDE 0.9% 1,000 ML IV SCH (02:18)
[2021-03-30] MEDS: INSULIN LISPRO 100 UNITS/ML SUBCUT SCH ×3 (06:11→18:33)
[2021-03-30] MEDS: BLOOD SUGAR DIAGNOSTIC STRIP TEST SCH ×3 (06:17→17:40)
[2021-03-30] MEDS: HYDRALAZINE HCL 50MG TABLET PO SCH ×3 (06:17→21:03)
[2021-03-30 07:11] LABS: BASOPHILS % 0.3 % (0.0-2.0); EOSINOPHILS % 2.5 % (0.0-5.0); HEMATOCRIT. 26.5 % (36.0-48.0); HEMOGLOBIN. 8.5 g/dL (12.0-16.0); LYMPHOCYTES % 14.7 % (20.0-50.0); MEAN CORPUSCULAR HEMOGLOBIN 25.6 pg (28.0-32.0); MEAN CORPUSCULAR VOLUME 80.4 fL (81.0-99.0); MEAN PLATELET VOLUME 8.4 fl (7.4-10.4); MONOCYTES % 8.6 % (2.0-8.0); NEUTROPHILS % 73.9 % (40.0-76.0); PLATELET 222 x1000/uL (130-400); RED CELL DISTRIBUTION WIDTH 22.7 % (11.6-14.6)
[2021-03-30 07:28] LABS: PHOSPHORUS 3.5 mg/dL (2.5-4.9)
[2021-03-30] MEDS: SUCRALFATE 1G TABLET PO SCH ×4 (08:03→21:02)
[2021-03-30] MEDS: NIFEDIPINE XL 90MG TAB PO SCH (08:04)
[2021-03-30] MEDS: OMEPRAZOLE 20MG CAPSULE EXTENDED RELEASE PO SCH (08:04)
[2021-03-30] MEDS: MICAFUNGIN 150 MG in SODIUM CHLORIDE 0.9% 100 ML IV SCH (14:24)
[2021-03-30] MEDS ORDERED: OMEPRAZOLE 20MG CAPSULE EXTENDED RELEASE PO SCH (21:00)
[2021-03-31] VITALS: BP 151/68
[2021-03-31] MEDS: BLOOD SUGAR DIAGNOSTIC STRIP TEST SCH
[2021-03-31] MEDS: INSULIN LISPRO 100 UNITS/ML SUBCUT SCH
[2021-03-31] MEDS: HYDRALAZINE 20MG/ML VIAL IV SCH (00:53)
== END 2021-03-31 01:15 | disposition short-term general hospital (02) | DRG 720 ==
LOC: ER 11:48 → MICUSO 16:17 → 5EST 20:58
PROVIDERS: ADMIT Internal Medicine; ATTEND Internal Medicine
PROC: 30233N1 Transfusion of Nonautologous Red Blood Cells into Peripheral Vein, Percutaneous Approach (ICD-10-PCS; principal; 2021-03-24)
DX: A40.9 Streptococcal sepsis, unspecified (principal); N17.0 Acute kidney failure with tubular necrosis; I63.9 Cerebral infarction, unspecified; I21.4 Non-ST elevation (NSTEMI) myocardial infarction; E43 Unspecified severe protein-calorie malnutrition; K63.2 Fistula of intestine; C78.4 Secondary malignant neoplasm of small intestine; C78.7 Secondary malignant neoplasm of liver and intrahepatic bile duct; E87.2 Acidosis; I27.21 Secondary pulmonary arterial hypertension; I11.0 Hypertensive heart disease with heart failure; I50.30 Unspecified diastolic (congestive) heart failure; E16.4 Increased secretion of gastrin; K92.2 Gastrointestinal hemorrhage, unspecified; D50.0 Iron deficiency anemia secondary to blood loss (chronic); E11.9 Type 2 diabetes mellitus without complications; Z20.822 Contact with and (suspected) exposure to COVID-19; R80.9 Proteinuria, unspecified; R55 Syncope and collapse; E66.9 Obesity, unspecified; K80.20 Calculus of gallbladder without cholecystitis without obstruction; R74.01 Elevation of levels of liver transaminase levels; I08.1 Rheumatic disorders of both mitral and tricuspid valves; K75.9 Inflammatory liver disease, unspecified; Z82.49 Family history of ischemic heart disease and other diseases of the circulatory system; Z68.29 Body mass index [BMI] 29.0-29.9, adult; Z79.899 Other long term (current) drug therapy
CPT/HCPCS: 36415; 36600; 70551; 71045; 76700; 80048; 80053; 80320; 81003; 82375; 82550; 82570; 82805; 82962; 83036; 83540; 83550; 83605; 83735; 83880; 84100; 84156; 84484; 85025; 86038; 86160; 86850; 86870; 86900; 86920; 87426; 93005; 93306; 93880; 93970; 97162; 97165; 99291; A6261; C9113; J0295; J0360; J1815; J1940; J2020; J2248; J2543; J3370; J3475; J3490; J7030; J7040; J7050; J7070; J7120; P9016; G0480